=== PATIENT | female | born 1985 | race Caucasian/White ===

== ENCOUNTER 2016-11-07 13:49 | Emergency (ER) | payer MEDICAID ==
[2016-11-07] MEDS ORDERED: IBUPROFEN 600 MG TABLET PO ONE (14:28)
--- NOTE | 2016-11-07 14:42 | ER Document Report ---
ED Skin Rash/Insect Bite/Abscs - General Chief Complaint: Wrist Pain Stated Complaint: RIGHT WRIST PAIN Time Seen by Provider: 11/07/16 14:09 Mode of Arrival: Ambulatory Information source: Patient Notes: 30-year-old female presents to ED for a spider bite about an hour before she came to the emergency room she states there was more swelling and redness to the site before she came but she took some Benadryl about 5 PM. States she feels much better before coming into the emergency room. Patient was treated with ibuprofen in the emergency room. TRAVEL OUTSIDE OF THE [place] IN LAST 30 DAYS: No - HPI Patient complains to provider of: Spider bite - Right wrist Onset: This afternoon Onset/Duration: Sudden, Better Quality of pain: Burning Severity: Mild Pain Level: 2 Skin Character: Erythema, Other - States she saw a black spider bite her Quality of rash: Painful Identify cause: Yes Exacerbated by: Denies Relieved by: Other - Benadryl Similar symptoms previously: No Recently seen / treated by doctor: No - Related Data Allergies/Adverse Reactions: nickel [Nickel] Allergy (Verified 11/07/16 13:53) aspirin [Aspirin] Adverse Reaction (Mild, Verified 11/07/16 13:53) upset stomach Past Medical History - General Information source: Patient - Social History Smoking Status: Current Every Day Smoker Cigarette use (# per day): Yes - pack Per day Chew tobacco use (# tins/day): No Smoking Education Provided: Yes - less than 1 min Frequency of alcohol use: Rare Drug Abuse: None Occupation: no Lives with: Alone - kids Family History: Arthritis, DM, Hyperlipidemia, Hypertension, Thyroid Disfunction - Past Medical History Cardiac Medical History: Reports: None Pulmonary Medical History: Reports: Hx Asthma EENT Medical History: Reports: None Neurological Medical History: Reports: None Endocrine Medical History: Reports: None Renal/ Medical History: Reports: None Malignancy Medical History: Reports: None GI Medical History: Reports: None Musculoskeltal Medical History: Reports Hx Arthritis, 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 Skin Medical History: Reports None Psychiatric Medical History: Reports: Hx Bipolar Disorder, Hx Depression Traumatic Medical History: Reports: None Infectious Medical History: Reports: None Past Surgical History: Reports: Hx Adenoidectomy, Hx Hysterectomy, Hx Oral Surgery, Hx Tonsillectomy - Immunizations Hx Diphtheria, Pertussis, Tetanus Vaccination: Yes Review of Systems - Review of Systems Constitutional: No symptoms reported EENT: No symptoms reported Cardiovascular: No symptoms reported Respiratory: No symptoms reported Gastrointestinal: No symptoms reported Genitourinary: No symptoms reported Female Genitourinary: No symptoms reported Musculoskeletal: Other - small swollen red area to right inner wrist, states bit by black spider Skin: Other - small swollen red area to right inner wrist Hematologic/Lymphatic: No symptoms reported Neurological/Psychological: No symptoms reported Physical Exam - Vital signs Vitals: Temp Pulse Resp BP Pulse Ox 98.4 F 82 16 100/65 98 11/07/16 13:52 11/07/16 13:52 11/07/16 13:52 11/07/16 13:52 11/07/16 13:52 Interpretation: Normal - General General appearance: Appears well, Alert - HEENT Head: Normocephalic, Atraumatic Eyes: Normal Pupils: PERRL - Respiratory Respiratory status: No respiratory distress Chest status: Nontender Breath sounds: Normal Chest palpation: Normal - Cardiovascular Rhythm: Regular Heart sounds: Normal auscultation Murmur: No - Abdominal Inspection: Normal Distension: No distension Bowel sounds: Normal Tenderness: Nontender Organomegaly: No organomegaly - Back Back: Normal, Nontender - Extremities General upper extremity: Normal inspection, Nontender, Normal color, Normal ROM , Normal temperature General lower extremity: Normal inspection, Nontender, Normal color, Normal ROM , Normal temperature, Normal weight bearing. No: Noi's sign - Neurological Neuro grossly intact: Yes Cognition: Normal Orientation: AAOx4 [place] Coma Scale Eye Opening: Spontaneous [place] Coma Scale Verbal: Oriented [place] Coma Scale Motor: Obeys Commands [place] Coma Scale Total: 15 Speech: Normal Motor strength normal: LUE, RUE, LLE, RLE Sensory: Normal - Psychological Associated symptoms: Normal affect, Normal mood - Skin Skin Temperature: Warm Skin Moisture: Dry Skin Color: Normal Location of irregularity: Extremities - small swollen red area to right inner wrist Course - Vital Signs Vital signs: Temp Pulse Resp BP Pulse Ox 97.9 F 78 17 90/64 L 99 11/07/16 14:59 11/07/16 14:59 11/07/16 14:59 11/07/16 14:59 11/07/16 14:59 Discharge - Discharge Clinical Impression: spider bite right wrist Condition: Stable Disposition: HOME, SELF-CARE Instructions: Family Physicians / Practices Additional Instructions: Insect Bites You have been bitten by an insect. These bites can cause two types of swelling: an initial swelling due to insect saliva or injected poison, and a late reaction due to your body's allergic reaction. This initial local reaction may be uncomfortable but is not dangerous. Often there's an itchy "hive" at the bite location. This is treated with antihistamines, cold compresses, and resting the affected body part. The later reaction often develops about the second day. The entire area becomes very swollen, red, itchy, and tender. This is an allergic reaction. Your body is attacking the leftover insect saliva or venom. This type of allergy is unpleasant, but not dangerous. We treat this swelling with cortisone -type medicine. Sometimes we use antibiotics if we're worried about infection. Antihistamines help with the itch. If you develop a fever, chills, a red streak, or swollen glands in the area of the bite, infection may be starting. Return at once. ANTIHISTAMINES: An antihistamine has been given and/or prescribed to control your symptoms. Antihistamines are used for many reasons, including itching, watering eyes, runny nose, allergic swelling, hives, and insect stings. Antihistamines may cause drowsiness, especially with the first dose. Do not operate machinery or drive while under the effects of the medication. Other common side effects include dry mouth and eyes. In older persons, antihistamines can occasionally cause urinary retention, constipation, and trouble focusing the eyes. Do not combine the medication with alcohol, or with any other medication without talking to your doctor. USE OF DIPHENHYDRAMINE: The use of diphenhydramine (Benadryl) has been recommended to control allergic symptoms. The 25 mg strength is available over- the-counter, as well as the elixir. This antihistamine is used for many symptoms. It's useful for itching, watering eyes and nose, allergic swelling, hives, and insect stings. The medication can be repeated four times daily. Age Elixir (12.5 mg/tsp) 25 mg pill 2-3 yr 1/2 tsp 4-8 yr 1 tsp 9-14 yr 2 tsp one tab adult 1-2 tabs Antihistamines may cause drowsiness, especially with the first dose. Do not operate machinery or drive while under the effects of the medication. Do not combine the medication with alcohol, or with any other medication without talking to your doctor. Ibuprofen Ibuprofen is an excellent, safe drug for pain control. In addition, it has potent antiinflammatory effects which are beneficial, especially in the treatment of injuries, arthritis, or tendonitis. It's best to take ibuprofen with food. Persons with ulcer disease or allergy to aspirin should notify their physician of this before taking ibuprofen. Take the medication exactly as prescribed. Don't take additional doses unless instructed to do so by your doctor. If you develop wheezing, shortness of breath, hives, faintness, stomach pain, vomiting, or dark black stools, return for re-evaluation at once. FOLLOW-UP CARE: If you have been referred to a physician for follow-up care, call the physician s office for an appointment as you were instructed or within the next two days. If you experience worsening or a significant change in your symptoms, notify the physician immediately or return to the Emergency Department at any time for re-evaluation. Forms: Smoking Cessation Education Referrals: GEMA CABRALES PA-C [Primary Care Provider] - Follow up as needed
[2016-11-07 15:04] VITALS: BP 90/64
== END 2016-11-07 15:04 | disposition home or self-care (01) ==
LOC: ER 13:49
DX: T63.301A Toxic effect of unspecified spider venom, accidental (unintentional), initial encounter (principal); M79.89 Other specified soft tissue disorders; F17.210 Nicotine dependence, cigarettes, uncomplicated; Z71.6 Tobacco abuse counseling; J45.909 Unspecified asthma, uncomplicated
CPT/HCPCS: 99283; J3490

== ENCOUNTER 2017-07-18 15:01 | Emergency (ER) | payer MEDICAID ==
--- NOTE | 2017-07-18 15:49 | ER Document Report ---
ED GI/ - General Chief Complaint: Urinary Problem Stated Complaint: BLOOD IN URINE Time Seen by Provider: 07/18/17 15:31 Mode of Arrival: Ambulatory Information source: Patient, [facility] Records Notes: This 31-year-old female patient comes emergency room complaining of waking up this morning with urinary frequency, dysuria, and blood in urine. She does have some pain in her low back. There is no nausea or vomiting. There is no fever. TRAVEL OUTSIDE OF THE [place] IN LAST 30 DAYS: No - Related Data Allergies/Adverse Reactions: nickel [Nickel] Allergy (Verified 07/18/17 15:15) aspirin [Aspirin] Adverse Reaction (Mild, Verified 07/18/17 15:15) upset stomach Past Medical History - General Information source: Patient, [facility] Records - Social History Smoking Status: Current Every Day Smoker Cigarette use (# per day): Yes - 1/2 PPD Chew tobacco use (# tins/day): No Smoking Education Provided: No Frequency of alcohol use: None Drug Abuse: None Occupation: Unemployed Lives with: Friend Family History: Arthritis, DM, Hyperlipidemia, Hypertension, Thyroid Disfunction Patient has suicidal ideation: No Patient has homicidal ideation: No Pulmonary Medical History: Reports: Hx Asthma Musculoskeltal Medical History: Reports Hx Arthritis, 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 Psychiatric Medical History: Reports: Hx Bipolar Disorder, Hx Depression Past Surgical History: Reports: Hx Adenoidectomy, Hx Hysterectomy, Hx Oral Surgery, Hx Tonsillectomy - Immunizations Hx Diphtheria, Pertussis, Tetanus Vaccination: Yes Review of Systems - Review of Systems Constitutional: No symptoms reported EENT: No symptoms reported Cardiovascular: No symptoms reported Respiratory: No symptoms reported Gastrointestinal: No symptoms reported Genitourinary: See HPI Female Genitourinary: Last menstrual period - Hysterectomy Musculoskeletal: No symptoms reported Skin: No symptoms reported Hematologic/Lymphatic: No symptoms reported Neurological/Psychological: No symptoms reported Physical Exam - Vital signs Vitals: Temp Pulse Resp BP Pulse Ox 98.0 F 91 18 100/68 98 07/18/17 15:15 07/18/17 15:15 07/18/17 15:15 07/18/17 15:15 07/18/17 15:15 Interpretation: Normal - General General appearance: Appears well, Alert In distress: None - HEENT Head: Normocephalic, Atraumatic Eyes: Normal Pupils: PERRL - Respiratory Respiratory status: No respiratory distress Breath sounds: Normal - Cardiovascular Rhythm: Regular Heart sounds: Normal auscultation Murmur: No - Abdominal Inspection: Normal Tenderness: Tender - Suprapubic tender - Back Back: Tender - There is some tenderness to the lumbar sacral back muscles.. No : CVA tenderness - Extremities General upper extremity: Normal inspection General lower extremity: Normal inspection - Neurological Neuro grossly intact: Yes - Psychological Associated symptoms: Normal affect, Normal mood - Skin Skin Temperature: Warm Skin Moisture: Dry Skin Color: Normal Course - Vital Signs Vital signs: Temp Pulse Resp BP Pulse Ox 98.0 F 91 18 100/68 98 07/18/17 15:15 07/18/17 15:15 07/18/17 15:15 07/18/17 15:15 07/18/17 15:15 - Laboratory Laboratory results interpreted by me: 07/18/17 15:12 Urine Protein 30 H Urine Blood LARGE H Urine Nitrite POSITIVE H Ur Leukocyte Esterase LARGE H Discharge - Discharge Clinical Impression: Hemorrhagic cystitis Condition: Stable Disposition: HOME, SELF-CARE Additional Instructions: Urinary Tract Infection Your evaluation indicates that you have a urinary tract infection. This is due to germs growing in the bladder. This is a common problem. This infection usually responds quickly to antibiotics. Your antibiotic should be taken exactly as prescribed. Drink plenty of fluids -- three to four quarts a day. Occasionally, a bladder anesthetic will be prescribed to help stop the feeling of urgency until the antibiotic has a chance to clear the infection. This may cause your urine to be dark orange. Certain urine infections require a culture. If the doctor obtained a culture, the results will be back in two days. You should call to see if a change in treatment is needed. A repeat urinalysis after you finish treatment is often recommended. The physician will let you know if further testing is required. Call the doctor if you develop fever, chills, flank pain, inability to urinate, or blood in the urine. Prescriptions: Cephalexin Monohydrate [Keflex 500 mg Capsule] 500 mg PO TID #15 capsule Phenazopyridine HCl [Pyridium 200 mg Tablet] 200 mg PO TID #10 tablet Referrals: GEMA CABRALES PA-C [Primary Care Provider] - Follow up as needed
[2017-07-18 16:28] LABS: APPEARANCE,URINE CLOUDY; BILIRUBIN,URINE NEGATIVE (NEGATIVE); COLOR,URINE YELLOW; GLUCOSE, URINE NEGATIVE (NEGATIVE); KETONES,URINE NEGATIVE (NEGATIVE); LEUKOCYTE ESTERASE,URINE LARGE (NEGATIVE); NITRITE,URINE POSITIVE (NEGATIVE); PROTEIN,URINE 30 mg/dL (NEGATIVE); URINE SPECIFIC GRAVITY 1.016; UROBILINOGEN,URINE NEGATIVE mg/dL (<2.0)
[2017-07-18] MEDS ORDERED: CEPHALEXIN 500 MG CAPSULE PO ONE (16:58)
[2017-07-18] MEDS ORDERED: PHENAZOPYRIDINE HCL 200 MG TABLET PO ONE (16:59)
[2017-07-18 17:14] VITALS: BP 108/97
== END 2017-07-18 17:14 | disposition home or self-care (01) ==
LOC: ER 15:01
DX: N30.91 Cystitis, unspecified with hematuria (principal); M54.9 Dorsalgia, unspecified; F17.210 Nicotine dependence, cigarettes, uncomplicated; Z90.710 Acquired absence of both cervix and uterus; Z88.6 Allergy status to analgesic agent
CPT/HCPCS: 99283; 87086; 87088; 81001; 87186; J3490

== ENCOUNTER → 2017-12-09 | Outpatient (CLI) | payer MEDICAID ==
[2017-12-09 11:29] LABS: HEMATOCRIT 36.9 % (36.0-47.0); HEMOGLOBIN 12.5 g/dL (12.0-15.5); MEAN CORPUSCULAR HEMOGLOBIN 30.8 pg (27.0-33.4); MEAN CORPUSCULAR HGB CONC 33.9 g/dL (32.0-36.0); MEAN CORPUSCULAR VOLUME 91 fl (80-97); PLATELET COUNT 217 10^3/uL (150-450); RED BLOOD COUNT 4.06 10^6/uL (3.72-5.28); RED CELL DISTRIBUTION WIDTH 13.1 % (11.5-14.0); WHITE BLOOD COUNT 6.5 10^3/uL (4.0-10.5)
[2017-12-09 11:40] LABS: APPEARANCE,URINE CLOUDY; BILIRUBIN,URINE NEGATIVE (NEGATIVE); COLOR,URINE YELLOW; GLUCOSE, URINE NEGATIVE (NEGATIVE); KETONES,URINE NEGATIVE (NEGATIVE); LEUKOCYTE ESTERASE,URINE SMALL (NEGATIVE); NITRITE,URINE NEGATIVE (NEGATIVE); PROTEIN,URINE NEGATIVE (NEGATIVE); UROBILINOGEN,URINE NEGATIVE mg/dL (<2.0)
[2017-12-09 12:08] LABS: ERYTHROCYTE SEDIMENTATION RATE 18 mm/hr (0-20)
[2017-12-09 12:11] LABS: ALANINE AMINOTRANSFERASE 13 U/L (9-52); ALBUMIN 3.8 g/dL (3.5-5.0); ALKALINE PHOSPHATASE 64 U/L (38-126); ANION GAP 10 (5-19); ASPARTATE AMINO TRANSFERASE 14 U/L (14-36); BILIRUBIN,DIRECT 0.2 mg/dL (0.0-0.4); BILIRUBIN,TOTAL 0.2 mg/dL (0.2-1.3); BLOOD UREA NITROGEN 6 mg/dL (7-20); CALCIUM 8.7 mg/dL (8.4-10.2); CARBON DIOXIDE 21 mmol/L (22-30); CHLORIDE 110 mmol/L (98-107); GLUCOSE 88 mg/dL (75-110); POTASSIUM 3.5 mmol/L (3.6-5.0); SODIUM 140.8 mmol/L (137-145); TOTAL PROTEIN 7.1 g/dL (6.3-8.2)
[2017-12-09 12:14] LABS: C-REACTIVE PROTEIN < 5.0 mg/L (<10.0)
[2017-12-09 13:33] LABS: CHLAM PCR NOT DETECTED (NOT DETECT); GON PCR NOT DETECTED (NOT DETECT)
[2017-12-10 16:40] LABS: LYME DISEASE IGM AB <0.80 index (0.00-0.79)
== END ==
LOC: OD 09:58
PROVIDERS: ATTEND Family Medicine
DX: G89.4 Chronic pain syndrome (principal)
CPT/HCPCS: 36415; 80053; 81001; 85027; 85652; 86038; 86140; 86430; 86617; 86618; 87491; 87591

== ENCOUNTER 2019-08-05 20:44 | Emergency (ER) | payer OTHER, MEDICAID ==
--- NOTE | 2019-08-05 21:32 | ER Document Report ---
Entered by BERNADINE HERNANDEZ SCRIBE 08/05/192101 Acting as scribe for:TYREL RODRIGUEZ IV, MD ED Extremity Problem, Lower - General Chief Complaint: Knee Pain Stated Complaint: KNEE PAIN Primary Care Provider: PARISH MAGALLANES DO [ACTIVE STAFF] - Follow up as needed Mode of Arrival: Ambulatory Information source: Patient Notes: This 33 year old female patient with a history of arthritis and scoliosis presents to the ED today with complaints of right knee pain that started when she woke up at 0900 this morning. Patient describes the pain as constant and throbbing with intermittent sharp pains. She states that she has tried applying heat and ice, taking a hot bath, elevation, and ambulation without relief. She notes that the pain is worse when her RLE is lying flat. Last dose of Tylenol was x3 hours prior to arrival. She reports history of arthritis in her back and that she is disabled. Denies injury, trauma, or fall. Denies history of gout. Denies fever, chills, or exposure to ticks. TRAVEL OUTSIDE OF THE [place] IN LAST 30 DAYS: No - Related Data Allergies/Adverse Reactions: nickel [Nickel] Allergy (Verified 07/18/17 15:15) aspirin [Aspirin] Adverse Reaction (Mild, Verified 07/18/17 15:15) upset stomach Home Medications: zoloft. topramax. abilify Past Medical History - General Information source: Patient - Social History Smoking Status: Current Every Day Smoker Cigarette use (# per day): Yes Chew tobacco use (# tins/day): No Smoking Education Provided: No Frequency of alcohol use: None Drug Abuse: Marijuana Family History: Reviewed & Not Pertinent, Arthritis, DM, Hyperlipidemia, Hypertension, Thyroid Disfunction Patient has suicidal ideation: No Patient has homicidal ideation: No Pulmonary Medical History: Reports: Hx Asthma Musculoskeletal Medical History: Reports Hx Arthritis, Reports Hx Musculoskeletal Deformity - scoliosis Psychiatric Medical History: Reports: Hx Bipolar Disorder, Hx Depression Past Surgical History: Reports: Hx Adenoidectomy, Hx Hysterectomy, Hx Oral Surgery, Hx Tonsillectomy - Immunizations Hx Diphtheria, Pertussis, Tetanus Vaccination: Yes Review of Systems - Review of Systems Constitutional: See HPI. denies: Chills, Fever EENT: No symptoms reported Cardiovascular: No symptoms reported Respiratory: No symptoms reported Gastrointestinal: No symptoms reported Genitourinary: No symptoms reported Female Genitourinary: No symptoms reported Musculoskeletal: See HPI, Joint pain - Right knee Skin: No symptoms reported Hematologic/Lymphatic: No symptoms reported Neurological/Psychological: No symptoms reported -: Yes All other systems reviewed and negative Physical Exam - Vital signs Vitals: Temp Pulse Resp BP Pulse Ox 98.7 F 76 16 103/72 98 08/05/19 20:50 08/05/19 20:50 08/05/19 20:50 08/05/19 20:50 08/05/19 20:50 Interpretation: Normal - General General appearance: Appears well, Alert In distress: None - HEENT Head: Normocephalic, Atraumatic Eyes: Normal Pupils: PERRL - Respiratory Respiratory status: No respiratory distress Chest status: Nontender Breath sounds: Normal Chest palpation: Normal - Cardiovascular Rhythm: Regular Heart sounds: Normal auscultation Murmur: No Friction rub: No Gallop: None auscultated - Abdominal Inspection: Normal Distension: No distension Bowel sounds: Normal Tenderness: Nontender - Abdomen soft Organomegaly: No organomegaly - Back Back: Normal, Nontender - Extremities General upper extremity: Normal inspection Knee: Tender - Tenderness to palpation to medial aspect of right knee, Other - No crepitus, erythema, or warmth appreciated. No: Deformity - No obvious deformity noted, Joint effusion - Neurological Neuro grossly intact: Yes Orientation: AAOx4 - Psychological Associated symptoms: Normal affect, Normal mood - Skin Skin Temperature: Warm Skin Moisture: Dry Skin Color: Normal Course - Re-evaluation Re-evalutation: 08/05/19 22:43 Results of ED MSE discussed with patient. All questions were answered prior to discharge. Emergency signs and symptoms, reasons to return to the emergency department discussed with patient. - Vital Signs Vital signs: Temp Pulse Resp BP Pulse Ox 98.7 F 76 16 103/72 98 08/05/19 20:50 08/05/19 20:50 08/05/19 20:50 08/05/19 20:50 08/05/19 20:50 - Diagnostic Test Radiology reviewed: Reports reviewed Discharge - Discharge Clinical Impression: Right medial knee pain Condition: Good Disposition: HOME, SELF-CARE Instructions: Use of Crutches ([facility]), Ice & Elevation ([facility]), Knee Immobilizing Splint ([facility]), Oral Narcotic Medication ([facility]) Additional Instructions: Return to the Emergency Department without delay if any worse. No weightbearing right leg for 5 days. Then gradual weightbearing as tolerated. Follow-up with [facility] for surgery on August 08, 2019. HOME CARE INSTRUCTIONS & INFORMATION: Thank you for choosing us for your medical needs. We hope you're satisfied with the care you received. After you leave, you must properly care for your problem and, at the same time, observe its progress. Any condition can change. Some illnesses can change rapidly over hours or days. If your condition worsens, return to the Emergency Department or see your physician promptly. ABOUT YOUR X-RAYS AND EKG'S: If you had an EKG or X-rays taken, they have been read by the Emergency Physician. The X-rays and EKG's will also be read by a Radiologist or Studio Sales Associate within 24 hours. If discrepancies are noted, you will be notified by telephone. Please be certain the ED has a correct telephone number & address where you can be reached. Also, realize that some fractures or abnormalities do not show up on initial X-rays. If your symptoms continue, see your physician. ABOUT YOUR LABORATORY TEST: If you had laboratory tests, the results have been reviewed by the Emergency Physician. Some test results (for example cultures) may not be available for several days. You will be contacted if any test result shows you need additional treatment. Please be certain the ED has a correct telephone number and address where you can be reached. ABOUT YOUR MEDICATIONS: You will receive instructions on how to take your medicine on the prescription label you receive. Additional information may be provided by the Pharmacy. If you have questions afterwards, call the ED for clarification or further instructions. Some prescribed medications may cause drowsiness. Do not perform tasks such as driving a car or operating machinery without consulting your Pharmacist. If you feel you need a refill of pain medication, your condition will need re-evaluation. Please do not call for a refill of any medication. ABOUT YOUR SIGNATURE: Signature of this document acknowledges to followin. Understanding that you received emergency treatment and that you may be released before al medical problems are known or treated. Please be certain the ED has a correct phone number & address where you can be reached. 2. Acknowledgement that you will arrange for follow-up care as recommended. 3. Authorization for the Emergency Physician to provide information to your follow-up Physician in order to maximize your care. AT ANY TIME, IF YOUR SYMPTOMS CHANGE SIGNIFICANTLY OR WORSEN OR YOU DEVELOP NEW SYMPTOMS, RETURN TO THE EMERGENCY DEPARTMENT IMMEDIATELY FOR RE-EVALUATION. OUR GOAL IS TO PROVIDE EXCELLENT MEDICAL CARE! WE HOPE THAT WE HAVE MET YOUR EXPECTATIONS DURING YOUR EMERGENCY DEPARTMENT VISIT AND THAT YOU FEEL YOU HAVE RECEIVED EXCELLENT CARE! Prescriptions: Hydrocodone/Acetaminophen [[place] 5-325 mg Tablet] 1 tab PO Q6HP PRN #10 tablet PRN Reason: pain Referrals: PARISH MAGALLANES DO [ACTIVE STAFF] - 08/08/19 I personally performed the services described in the documentation, reviewed and edited the documentation which was dictated to the scribe in my presence, and it accurately records my words and actions.
--- NOTE | 2019-08-05 22:22 | RADIOLOGY REPORT (SQ) ---
EXAM DESCRIPTION: XR KNEE 4 OR MORE VIEWS COMPLETED DATE/TME: 08/05/2019 21:16 CLINICAL HISTORY: 33 years Female right knee pain COMPARISON: None. TECHNIQUE: Right knee, four views FINDINGS: No acute fractures or dislocations are identified. No osseous destructive lesions. No joint effusion is noted. IMPRESSION: No acute fracture is identified.
[2019-08-05] MEDS ORDERED: HYDROCODONE/ACETAMINOPHEN 5-325 MG (6 TAB/ER DISP) PO PRN (22:42)
[2019-08-05 23:10] VITALS: BP 109/82
== END 2019-08-05 23:12 | disposition home or self-care (01) ==
LOC: ER 20:44
DX: M25.561 Pain in right knee (principal); F17.210 Nicotine dependence, cigarettes, uncomplicated; J45.909 Unspecified asthma, uncomplicated; F31.9 Bipolar disorder, unspecified; Z79.899 Other long term (current) drug therapy; Z91.048 Other nonmedicinal substance allergy status
CPT/HCPCS: 99283

== ENCOUNTER 2020-02-05 10:07 | Emergency (ER) | payer MEDICAID ==
[2020-02-05 10:33] VITALS: BP 99/76
--- NOTE | 2020-02-05 11:16 | ER Document Report ---
HPI - HPI Time Seen by Provider: 02/05/20 11:02 Pain Level: 4 Notes: 34-year-old female to the emergency department with complaints of left wrist and hand pain that began yesterday and is gotten progressively worse. She is left- hand dominant. She states she does not recall any sort of injury. She does use the wrist and hand all the time. She states the pain starts on the back of the wrist and runs up to the pinky side of her hand. She states that she does not have a lot of range of motion because of the pain. Denies any other symptoms. - CONSTITUTIONAL Constitutional: DENIES: Fever, Chills - EENT EENT: DENIES: Sore Throat, Ear Pain, Congestion - NEURO Neurology: DENIES: Headache, Weakness - CARDIOVASCULAR Cardiovascular: DENIES: Chest pain - RESPIRATORY Respiratory: DENIES: Trouble Breathing, Coughing - GASTROINTESTINAL Gastrointestinal: DENIES: Abdominal Pain, Nausea, Patient vomiting, Diarrhea - MUSCULOSKELETAL Musculoskeletal: REPORTS: Extremity pain Notes: hand pain - DERM Skin Color: Normal Skin Problems: None Past Medical History - General Information source: Patient - Social History Smoking Status: Current Every Day Smoker Frequency of alcohol use: Occasional Drug Abuse: None Family History: Reviewed & Not Pertinent, Arthritis, DM, Hyperlipidemia, Hypertension, Thyroid Disfunction Patient has homicidal ideation: No Pulmonary Medical History: Reports: Hx Asthma Renal/ Medical History: Denies: Hx Peritoneal Dialysis Musculoskeletal Medical History: Reports Hx Arthritis, Reports Hx Musculoskeletal Deformity - scoliosis Psychiatric Medical History: Reports: Hx Bipolar Disorder, Hx Depression Past Surgical History: Reports: Hx Adenoidectomy, Hx Hysterectomy, Hx Oral Surgery, Hx Tonsillectomy - Immunizations Hx Diphtheria, Pertussis, Tetanus Vaccination: Yes Vertical Provider Document - CONSTITUTIONAL Agree With Documented VS: Yes Exam Limitations: No Limitations General Appearance: WD/WN, No Apparent Distress - INFECTION CONTROL TRAVEL OUTSIDE OF THE [place] IN LAST 30 DAYS: No - HEENT HEENT: Atraumatic, Normocephalic, PERRLA - NECK Neck: Normal Inspection, Supple - RESPIRATORY Respiratory: Breath Sounds Normal, No Respiratory Distress. negative: Rales, Rhonchi, Wheezing - CARDIOVASCULAR Cardiovascular: Regular Rate, Regular Rhythm, No Murmur - GI/ABDOMEN Gastrointestinal: Abdomen Soft, Abdomen Non-Tender, No Organomegaly - BACK Back: Normal Inspection - MUSCULOSKELETAL/EXTREMETIES Notes: there is mild TTP over the dorsum of the left wrist and left thumb. no snuff box tenderness. left hand chief deputy is 4/5. Radial pulses intact and equal. Cap refills is less than 2 sec. 5/5 strength in all fingers in in testing of both flexor tendons and the extensor tendon of the left hand against resistance. - NEURO Level of Consciousness: Awake, Alert, Appropriate Motor/Sensory: No Motor Deficit, No Sensory Deficit - DERM Integumentary: Warm, Dry, No Rash Course - Re-evaluation Re-evalutation: Impression: Left hand pain/tendonitis. Will splint the patient and send home with pain meds and steroids. ortho follow up. Return if worse. - Vital Signs Vital signs: Temp Pulse Resp BP Pulse Ox 99.5 F 72 16 99/76 L 98 02/05/20 10:31 02/05/20 10:31 02/05/20 10:31 02/05/20 10:31 02/05/20 10:31 - Diagnostic Test Radiology reviewed: Image reviewed, Reports reviewed Discharge - Discharge Clinical Impression: Left wrist pain, Left hand pain, Tendonitis Condition: Stable Disposition: HOME, SELF-CARE Instructions: Tendonitis ([facility]) Additional Instructions: Use splint without fail. Ice the extremity 3 times a day for 20 minutes at a time. Rest the hand. Take steroid Dosepak. Follow-up with orthopedist without fail. Prescriptions: Methylprednisolone [Medrol Dosepack (4 mg/Tab) 21 Tab/Dosepak] 4 mg PO ASDIR PRN #21 tab.ds.pk PRN Reason: Tramadol HCl [Ultram 50 mg Tablet] 50 mg PO Q8H PRN #9 tab PRN Reason: Referrals: GEMA CABRALES PA-C [Primary Care Provider] - Follow up in 3-5 days MEGHAN WALSH DO [ACTIVE STAFF] - Follow up in 3-5 days (for ortho follow up)
--- NOTE | 2020-02-05 11:32 | RADIOLOGY REPORT (SQ) ---
EXAM DESCRIPTION: HAND LEFT 3 VIEWS IMAGES COMPLETED DATE/TIME: 02/05/2020 11:22 am REASON FOR STUDY: left hand and wrist pain COMPARISON: None. EXAM PARAMETERS: NUMBER OF VIEWS: Three views. TECHNIQUE: AP, lateral and oblique radiographic images acquired of the left hand. LIMITATIONS: None. FINDINGS: MINERALIZATION: Normal. BONES: No acute fracture or dislocation. No worrisome bone lesions. JOINTS: No effusions. SOFT TISSUES: No soft tissue swelling. No foreign body. OTHER: No other significant finding. IMPRESSION: NEGATIVE STUDY OF THE LEFT HAND. NO RADIOGRAPHIC EVIDENCE OF ACUTE INJURY. TECHNICAL DOCUMENTATION: JOB ID: [id number] 2010 [employer]- All Rights Reserved Reading location - IP/workstation name: [email or web address]
[2020-02-05] MEDS ORDERED: TRAMADOL HCL 50 MG TABLET PO ONE (11:36)
== END 2020-02-05 12:17 | disposition home or self-care (01) ==
LOC: ER 10:07
DX: M77.8 Other enthesopathies, not elsewhere classified (principal); M25.532 Pain in left wrist; M79.642 Pain in left hand; F17.200 Nicotine dependence, unspecified, uncomplicated
CPT/HCPCS: 99284